=== PATIENT | female | born 1990 | race Caucasian/White ===

== ENCOUNTER 2016-10-09 14:13 | Inpatient (IN) | payer OTHER ==
[~2016-10-09] VITALS: Ht 165.1 cm; Wt 81.5 kg
[~2016-10-09 14:13] MED LIST: CLAR5TAB13 PO; ZOFR4TAB3 SL
[2016-10-09 14:15] VITALS: BP 117/63; PULSE 73; RESP 16; TEMP 97.8; O2SAT 100
[2016-10-09] MEDS ORDERED: SODIUM CHLOR 0.9% 1000 ML INJ 1,000 ML IV SCH (14:33)
[2016-10-09 14:39] VITALS: BP 124/66; PULSE 72; PULSE 78; RESP 18; O2SAT 100
[2016-10-09] MEDS ORDERED: LORazepam 2 MG/ML VIAL IV PUSH ONE (14:45)
[2016-10-09] MEDS ORDERED: KETOROLAC TROMETHAMINE 30 MG/ML (IVP) VIAL IVP ONE (14:45)
--- NOTE | 2016-10-09 15:04 | RADRPT ---
EXAM DATE/TIME: 10/09/2016 14:50 [facility] COMPARISON: No previous studies available for comparison. INDICATIONS : Chest pain. MEDICAL HISTORY : None. SURGICAL HISTORY : None. ENCOUNTER: Initial ACUITY: 1 day PAIN SCORE: 7/10 LOCATION: Bilateral chest FINDINGS: A single view of the chest demonstrates the lungs to be symmetrically aerated without evidence of mas s, infiltrate or effusion. The cardiomediastinal contours are unremarkable. Osseous structures are intact. CONCLUSION: No acute disease. Goyo Lawler MD FACR on October 09, 2016 at 15:02 Board Certified Radiologist. This report was verified electronically.
[2016-10-09 15:14] LABS: AUTOMATED NEUTROPHIL # 7.2 TH/MM3 (1.8-7.7); BASOPHIL # 0.1 TH/MM3 (0-0.2); BASOPHIL % 0.6 % (0.0-2.0); EOSINOPHIL % 0.3 % (0.0-4.0); HEMATOCRIT 39.9 % (35.0-46.0); HEMO FLAGS DIFF FINAL; LYMPH % 25.3 % (9.0-44.0); LYMPHOCYTE # 2.7 TH/MM3 (1.0-4.8); MEAN CORPUSCULAR HEMOGLOBIN 28.6 PG (27.0-34.0); MEAN CORPUSCULAR HGB CONC 35.3 % (32.0-36.0); MONO % 7.3 % (0.0-8.0); NEUT % 66.5 % (16.0-70.0); PLATELET COUNT 366 TH/MM3 (150-450); RED BLOOD COUNT 4.92 MIL/MM3 (4.00-5.30); RED CELL DISTRIBUTION WIDTH 12.8 % (11.6-17.2); WHITE BLOOD COUNT 10.8 TH/MM3 (4.0-11.0)
[2016-10-09 15:39] LABS: ALKALINE PHOSPHATASE 66 U/L (45-117); ALT (GPT) 26 U/L (10-53); ANION GAP 11 MEQ/L (5-15); AST (GOT) 43 U/L (15-37); BICARBONATE 23.1 MEQ/L (21.0-32.0); BLOOD UREA NITROGEN 11 MG/DL (7-18); CHLORIDE 104 MEQ/L (98-107); CREATINE KINASE 131 U/L (26-192); GLOMERULAR FILTRATION RATE 91 ML/MIN (>89); POTASSIUM 4.5 MEQ/L (3.5-5.1); SODIUM (NA) 138 MEQ/L (136-145); TOTAL BILIRUBIN ADULT 0.8 MG/DL (0.2-1.0)
[2016-10-09 15:52] LABS: CKMB LESS THAN 0.5 NG/ML (0.5-3.6)
[2016-10-09] MEDS ORDERED: NITROGLYCERIN 0.4 MG SL 25 TABS/BTL SL ONE (16:00)
[2016-10-09] MEDS ORDERED: ASPIRIN 325 MG TAB PO ONE (16:00)
--- NOTE | 2016-10-09 16:01 | PD ---
HPI Chief Complaint: Chest Pain Time Seen by Provider: 15:55 Travel History International Travel<30 days: No Contact w/Intl Traveler<30days: No Traveled to known affect area: No History of Present Illness HPI 26-year-old female that presents to the ED for evaluation of chest pain. Per patient she's had this on and off since yesterday. Per patient she's been feeling weak and tired. Per patient the pain for the past hour has become progressively more severe and this is what made her come here. Per patient she' s been a different hospitals properly worked up for this in the past and told her that she does have anxiety. She states that the pain doesn't does not radiate and she has some shortness of breath. Per patient she was following with an asthma doctor and she was told to try some albuterol inhaler as the toenail this was asthma but she states that she's never been diagnosed with it. She has no allergies to medication. She denies any abdominal pain. Per patient she just feels weak and tired. Pain does not radiate and stays in the left chest. She is not taking anything for this. She denies any drug abuse or recent travel. Denies taking control. Denies possibility of . States that the pain is 8 out of 10. States that she also has a slight headache. Has no allergies to medication. Has not seen a geek squad manager for this. States having a family history of heart disease but when her parents were 50 not at her age. PFSH Past Medical History Anxiety: Yes Heart Rhythm Problems: Yes (HEART MURMUR) Immunizations Current: Yes ?: Not Past Surgical History Eye Surgery: Yes (LEFT EYE MAC DEG PROCEDURE) Social History Alcohol Use: Yes (OCC) Tobacco Use: No (8 months ago) Substance Use: No Allergies-Medications (Allergen,Severity, Reaction): Coded Allergies: No Known Allergies (Unverified , 10/09/16) Reported Meds & Prescriptions Reported Meds & Active Scripts Active Zofran ODT (Ondansetron HCl) 4 Mg Tab 4 Mg SL Q6HR PRN FOR NAUSEA/VOMITING Reported Claritin Reditabs (Loratadine) 5 Mg Tab 5 Mg PO DAILY Review of Systems Except as stated in HPI: all other systems reviewed are Neg Physical Exam Narrative GENERAL: SKIN: Warm and dry. HEAD: Atraumatic. Normocephalic. EYES: Pupils equal and round. No scleral icterus. No injection or drainage. ENT: No nasal bleeding or discharge. Mucous membranes pink and moist. Tongue is midline. No uvula deviation. NECK: Trachea midline. No JVD. CARDIOVASCULAR: Regular rate and rhythm. No murmurs, S3, S4. Some of the chest pressure producible with touch in the left chest RESPIRATORY: No accessory muscle use. Clear to auscultation. Breath sounds equal bilaterally. GASTROINTESTINAL: Abdomen soft, non-tender, nondistended. Hepatic and splenic margins not palpable. MUSCULOSKELETAL: Extremities without clubbing, cyanosis, or edema. No obvious deformities. Full range of motion of the upper and lower extremities bilaterally. 2+ pulses bilaterally. NEUROLOGICAL: Awake and alert. No obvious cranial nerve deficits. Motor grossly within normal limits. Five out of 5 muscle strength in the arms and legs. Normal speech. PSYCHIATRIC: Appropriate mood and affect; insight and judgment normal. Data Data Last Documented VS Vital Signs Date Time Temp Pulse Resp B/P Pulse Ox O2 Delivery O2 Flow Rate FiO2 10/09/16 14:39 72 18 124/66 100 Room Air 10/09/16 14:15 97.8 Orders Electrocardiogram (10/09/16 14:33) Complete Blood Count With Diff (10/09/16 14:33) Comprehensive Metabolic Panel (10/09/16 14:33) Ckmb (Isoenzyme) Profile (10/09/16 14:33) Troponin I (10/09/16 14:33) Urinalysis - C+S If Indicated (10/09/16 14:33) Chest, Single Ap (10/09/16 14:33) Ct Brain W/O Iv Contrast(Rout) (10/09/16 14:33) Iv Access Insert/Monitor (10/09/16 14:33) Ecg Monitoring (10/09/16 14:33) Oximetry (10/09/16 14:33) Ed Urine Pregnancytest Poc (10/09/16 14:33) Drug Screen, Random Urine (10/09/16 14:33) Alcohol (Ethanol) (10/09/16 14:33) Sodium Chlor 0.9% 1000 Ml Inj (Ns 1000 M (10/09/16 14:33) Ketorolac Inj (Toradol Inj) (10/09/16 14:45) Lorazepam Inj (Ativan Inj) (10/09/16 14:45) D-Dimer (10/09/16 14:54) CKMB (10/09/16 15:00) CKMB% (10/09/16 15:00) Aspirin (Aspirin) (10/09/16 16:00) Nitroglycerin Sl (Nitrostat Sl) (10/09/16 16:00) Admit Order (Ed Use Only) (10/09/16 16:11) Labs Laboratory Tests Test 10/09/16 10/09/16 15:00 15:55 White Blood Count 10.8 TH/MM3 Red Blood Count 4.92 MIL/MM3 Hemoglobin 14.1 GM/DL Hematocrit 39.9 % Mean Corpuscular Volume 81.0 FL Mean Corpuscular Hemoglobin 28.6 PG Mean Corpuscular Hemoglobin 35.3 % Concent Red Cell Distribution Width 12.8 % Platelet Count 366 TH/MM3 Mean Platelet Volume 8.5 FL Neutrophils (%) (Auto) 66.5 % Lymphocytes (%) (Auto) 25.3 % Monocytes (%) (Auto) 7.3 % Eosinophils (%) (Auto) 0.3 % Basophils (%) (Auto) 0.6 % Neutrophils # (Auto) 7.2 TH/MM3 Lymphocytes # (Auto) 2.7 TH/MM3 Monocytes # (Auto) 0.8 TH/MM3 Eosinophils # (Auto) 0.0 TH/MM3 Basophils # (Auto) 0.1 TH/MM3 CBC Comment DIFF FINAL Differential Comment D-Dimer Quantitative (PE/DVT) 0.24 MG/L FEU Sodium Level 138 MEQ/L Potassium Level 4.5 MEQ/L Chloride Level 104 MEQ/L Carbon Dioxide Level 23.1 MEQ/L Anion Gap 11 MEQ/L Blood Urea Nitrogen 11 MG/DL Creatinine 0.77 MG/DL Estimat Glomerular Filtration 91 ML/MIN Rate Random Glucose 98 MG/DL Calcium Level 9.7 MG/DL Total Bilirubin 0.8 MG/DL Aspartate Amino Transf 43 U/L (AST/SGOT) Alanine Aminotransferase 26 U/L (ALT/SGPT) Alkaline Phosphatase 66 U/L Total Creatine Kinase 131 U/L Creatine Kinase MB LESS THAN 0.5 NG/ML Troponin I 0.19 NG/ML Total Protein 8.1 GM/DL Albumin 4.1 GM/DL Ethyl Alcohol Level LESS THAN 3 MG/DL Urine Color LIGHT-YELLOW Urine Turbidity CLEAR Urine pH 7.5 Urine Specific [place] 1.004 Urine Protein NEG mg/dL Urine Glucose (UA) NEG mg/dL Urine Ketones 10 mg/dL Urine Occult Blood NEG Urine Nitrite NEG Urine Bilirubin NEG Urine Urobilinogen LESS THAN 2.0 MG/DL Urine Leukocyte Esterase NEG Urine Squamous Epithelial <1 /hpf Cells Microscopic Urinalysis Comment CULT NOT INDICATED Urine Opiates Screen NEG Urine Barbiturates Screen NEG Urine Amphetamines Screen NEG Urine Benzodiazepines Screen NEG Urine Cocaine Screen NEG Urine Cannabinoids Screen NEG MDM Medical Decision Making Medical Screen Exam Complete: Yes Emergency Medical Condition: Yes Medical Record Reviewed: Yes Interpretation(s) EKG shows sinus rhythm with no sign of ST elevation or acute ischemia read by me and attending. CBC & BMP Diagram 10/09/16 15:00 troponin of 0.19 CKMB negative alcohol negative Last Impressions Chest X-Ray 10/09/16 1433 Signed Impressions: Service Date/Time: Sunday, October 09, 2016 14:50 - CONCLUSION: No acute disease. Goyo Lawler MD FACR Differential Diagnosis Chest pain versus atypical chest pain versus a reaction versus costochondritis versus pneumonia versus anxiety versus ACS versus PE Narrative Course 26-year-old female that presents to the ED for evaluation of chest pain. Patient was properly examined and was found to have signs and symptoms consistent appears to be chest pain. Her pain is somewhat purposeful with touch. I did press on her chest that she states that the pain is reproducible. She denies any drug abuse or history of heart disease. I will do basic labs and troponin as well as EKG to measures no sign of acute disease. Patient was started on aspirin as well as given Toradol for pain. I suspect some anxiety secondary to this as well so she was given Ativan for this. Labs and imaging came back positive for positive troponin. Patient was given nitroglycerin because of this. Case discussed with my attending Dr. Cooper who recommends admission. This was discussed with the patient and friend who agree with admission. MICHELLE Orellana agrees to admission. Procedures EKG Prior to Arrival: No Diagnosis Primary Impression: NSTEMI (non-ST elevated myocardial infarction) Additional Impression: Chest pain in adult Admitting Information Admitting Physician Requests: Admit Tre Ugarte October 09, 2016 16:01
[2016-10-09 16:06] LABS: BLOOD, URINE NEG (NEG); COMMENT (UR) CULT NOT INDICATED; CULTURE IF INDICATED CULT NOT INDICATED; GLUCOSE,URINE NEG (NEG); KETONE, URINE 10 mg/dL (NEG); NITRITE,URINE NEG (NEG); PH, URINE 7.5 (5.0-8.5); SQUAMOUS EPITHELIAL CELL URINE <1 /hpf (0-5); URINE COLOR LIGHT-YELLOW (YELLW/STRAW)
[2016-10-09 16:13] LABS: AMPHETAMINE, URINE NEG (NEG); BARBITURATES, URINE NEG (NEG); COCAINE, URINE NEG (NEG)
[2016-10-09 16:29] VITALS: BP 119/70; PULSE 93; RESP 18; O2SAT 100
--- NOTE | 2016-10-09 16:42 | RADRPT ---
EXAM DATE/TIME: 10/09/2016 16:18 [facility] COMPARISON: CT BRAIN W/O CONTRAST, October 10, 2015, 2:06. INDICATIONS : Occipital cephalgia, dizziness and general weakness today. RADIATION DOSE: 33.37 CTDIvol (mGy) MEDICAL HISTORY : None SURGICAL HISTORY : None. ENCOUNTER: Initial ACUITY: 1 day PAIN SCALE: 9/10 LOCATION: Bilateral occipital head TECHNIQUE: Multiple contiguous axial images were obtained of the head. Using automated exposure control and adj ustment of the mA and/or kV according to patient size, radiation dose was kept as low as reasonably a chievable to obtain optimal diagnostic quality images. FINDINGS: CEREBRUM: The ventricles are normal for age. No evidence of midline shift, mass lesion, hemorrhage or acute in farction. No extra-axial fluid collections are seen. POSTERIOR FOSSA: The cerebellum and brainstem are intact. The 4th ventricle is midline. The cerebellopontine angle i s unremarkable. EXTRACRANIAL: The visualized portion of the orbits is intact. SKULL: The calvaria is intact. No evidence of skull fracture. CONCLUSION: Negative for an acute process.. Goyo Lawler MD FACR on October 09, 2016 at 16:40 Board Certified Radiologist. This report was verified electronically.
[2016-10-09] MEDS ORDERED: ALPRAZolam 0.25 MG TAB PO PRN (17:15)
[2016-10-09] MEDS ORDERED: ACETAMINOPHEN 500 MG CPLT PO PRN (17:15)
[2016-10-09] MEDS ORDERED: SODIUM CHLORIDE 0.9% FLUSH 10 ML FLUSH IV FLUSH PRN (17:15)
--- NOTE | 2016-10-09 17:21 | HHI.HP ---
[facility] Service [facility] Primary Care Physician Avani Varela, DO Admission Diagnosis chest pain with elevated troponin, NSTEMI Diagnoses: (1) Chest pain in adult Chief Complaint: Chest pain Travel History International Travel<30 Days: No Contact w/Intl Traveler <30 Da: No Traveled to Known Affected Are: No History of Present Illness Written by Manoj Sanders, acting as scribe for Dr. Orellana on 10/09/16 at 17:04. 26-year-old female with no significant past oral history who presented for chest pain. Patient states that about 1 PM today she began having left sternal chest discomfort. She states the pain radiated to her left shoulder. She describes the pain as a constant heaviness with intermittent episodes of sharp discomfort lasting a few seconds at a time. She had associated dizziness and lightheadedness with the chest pain. She has some nausea when she woke up this morning, denies any vomiting. She denies any shortness of breath. She denies any relief of the chest discomfort with medications in the ED. She states that she's had episodes of chest discomfort since she was a teenager, and has been to the hospital numerous times with this, with no definite cause. She denies any recent illness, fever, chills, cough, diarrhea. She states that occasionally she gets palpitations. She does report associated numbness and tingling in her hands and feet. She states that she's had hospitalizations before for numbness and tingling. She states her thyroid is been checked and it is normal. She states that in the past the only test she can recall for heart were EKGs which have been normal. She denies any substance use, herbal supplements, energy drinks, etc. She denies any life stressors and states that things are going well with work and her relationship with her partner is going well. She states that she had a history of a "hole" in her heart as a child, and was told that it healed. Review of Systems Except as stated in HPI: all other systems reviewed are Neg Past Family Social History Past Medical History Headaches, takes ibuprofen as needed Seasonal allergies Past Surgical History Left eye surgery for macular degeneration Reported Medications Ibuprofen as needed Claritin and Flonase as needed Allergies: Coded Allergies: No Known Allergies (Unverified , 10/09/16) Family History Mother has COPD Father has diabetes Heart disease in the patient's mother side Social History Patient denies any tobacco or drug use Rare alcohol use Works as a photo and video geographic information scientist Physical Exam Vital Signs Vital Signs Date Time Temp Pulse Resp B/P Pulse Ox O2 Delivery O2 Flow Rate FiO2 10/09/16 16:29 93 18 119/70 100 10/09/16 14:39 72 18 124/66 100 Room Air 10/09/16 14:39 82 20 100 Room Air 10/09/16 14:39 78 18 124/66 100 Room Air 10/09/16 14:15 97.8 73 16 117/63 100 Physical Exam GENERAL: Well-developed well-nourished. In no acute distress. SKIN: Warm and dry. No lesions noted. HEENT: Normocephalic. Pupils equal and round. Mucous membranes pink and moist. CARDIOVASCULAR: Regular rate and rhythm. No murmur appreciated. Chest wall TTP. RESPIRATORY: No accessory muscle use. Clear to auscultation. Breath sounds equal bilaterally. GASTROINTESTINAL: Abdomen soft, non-tender, nondistended. Bowel sounds x4. MUSCULOSKELETAL: No obvious deformities. No clubbing or cyanosis. No edema. NEUROLOGICAL: Awake and alert. No focal neurological deficits. Moves upper and lower extremities spontaneously. Normal speech. PSYCHIATRIC: Slightly anxious mood and affect; insight and judgment normal. Laboratory Laboratory Tests Test 10/09/16 10/09/16 15:00 15:55 White Blood Count 10.8 Red Blood Count 4.92 Hemoglobin 14.1 Hematocrit 39.9 Mean Corpuscular Volume 81.0 Mean Corpuscular Hemoglobin 28.6 Mean Corpuscular Hemoglobin 35.3 Concent Red Cell Distribution Width 12.8 Platelet Count 366 Mean Platelet Volume 8.5 Neutrophils (%) (Auto) 66.5 Lymphocytes (%) (Auto) 25.3 Monocytes (%) (Auto) 7.3 Eosinophils (%) (Auto) 0.3 Basophils (%) (Auto) 0.6 Neutrophils # (Auto) 7.2 Lymphocytes # (Auto) 2.7 Monocytes # (Auto) 0.8 Eosinophils # (Auto) 0.0 Basophils # (Auto) 0.1 CBC Comment DIFF FINAL Differential Comment D-Dimer Quantitative (PE/DVT) 0.24 Sodium Level 138 Potassium Level 4.5 Chloride Level 104 Carbon Dioxide Level 23.1 Anion Gap 11 Blood Urea Nitrogen 11 Creatinine 0.77 Estimat Glomerular Filtration 91 Rate Random Glucose 98 Calcium Level 9.7 Total Bilirubin 0.8 Aspartate Amino Transf 43 (AST/SGOT) Alanine Aminotransferase 26 (ALT/SGPT) Alkaline Phosphatase 66 Total Creatine Kinase 131 Creatine Kinase MB LESS THAN 0.5 Troponin I 0.19 Total Protein 8.1 Albumin 4.1 Ethyl Alcohol Level LESS THAN 3 Urine Color LIGHT-YELLOW Urine Turbidity CLEAR Urine pH 7.5 Urine Specific [place] 1.004 Urine Protein NEG Urine Glucose (UA) NEG Urine Ketones 10 Urine Occult Blood NEG Urine Nitrite NEG Urine Bilirubin NEG Urine Urobilinogen LESS THAN 2.0 Urine Leukocyte Esterase NEG Urine Squamous Epithelial <1 Cells Microscopic Urinalysis Comment CULT NOT INDICATED Urine Opiates Screen NEG Urine Barbiturates Screen NEG Urine Amphetamines Screen NEG Urine Benzodiazepines Screen NEG Urine Cocaine Screen NEG Urine Cannabinoids Screen NEG Result Diagram: 10/09/16 1500 10/09/16 1500 Imaging Last Impressions Head CT 10/09/161432 Signed Impressions: Service Date/Time: Sunday, October 09, 2016 16:18 - CONCLUSION: Negative for an acute process.. Goyo Lawler MD FACR Chest X-Ray 10/09/161432 Signed Impressions: Service Date/Time: Sunday, October 09, 2016 14:50 - CONCLUSION: No acute disease. Goyo Lawler MD FACR Assessment and Plan Problem List: (1) Chest pain in adult ICD Code: R07.9 Status: Acute Assessment and Plan 26-year-old female with no significant past oral history who presented for chest pain Atypical chest pain with elevated troponin: Unclear etiology, although pain is reproducible to palpation. Reviewed: EKG with NSR and no ischemic changes. Troponin 0.19. D-dimer within normal limits. UDS unremarkable. Chest x-ray clear. -Trend troponins -Check echocardiogram -Monitor on telemetry. -Check TSH and magnesium -PPI DVT prophylaxis: SCDs This note was transcribed by hilda Sanders. I, Dr. Arjun Orellana personally performed the history, physical exam, and medical decision making; and confirmed the accuracy of the information in the transcribed note. Authenticated by Dr. Arjun Orellana on 10/09/16 at 17:01. Code Status Ful code Discussed Condition With Patient, ED Manoj Beard October 09, 2016 17:21 Arjun Orellana MD October 09, 2016 17:22
[2016-10-09 17:42] VITALS: BP 108/70
[2016-10-09 20:01] VITALS: BP 116/68; PULSE 81; RESP 18; TEMP 98; O2SAT 98
[2016-10-09 22:08] LABS: FREE T4 1.19 NG/DL (0.76-1.46)
[2016-10-09] MEDS: SODIUM CHLORIDE 0.9% FLUSH 10 ML FLUSH IV FLUSH SCH (22:51)
[2016-10-10] VITALS (13 sets, daily range): BP systolic 98–117; BP diastolic 58–82; PULSE 67–98; RESP 17–20; TEMP 97.7–98.6; O2SAT 96–100
[2016-10-10] MEDS ORDERED: ENOXAPARIN SODIUM 40 MG/0.4 ML SYRINGE SQ SCH (05:45)
[2016-10-10] MEDS ORDERED: NITROGLYCERIN 0.3 MG SL 100 TABS/BTL SL PRN (07:15)
[2016-10-10] MEDS ORDERED: HEPARIN-D5W INJ 250 ML IV SCH (07:30)
[2016-10-10] MEDS ORDERED: SODIUM CHLOR 0.9% 1000 ML INJ 1,000 ML IV SCH ×2 (07:30→16:13)
[2016-10-10 08:09] LABS: HEMATOCRIT 35.3 % (35.0-46.0); MEAN CELL VOLUME 81.6 FL (80.0-100.0); MEAN CORPUSCULAR HEMOGLOBIN 28.8 PG (27.0-34.0); MEAN CORPUSCULAR HGB CONC 35.2 % (32.0-36.0); PLATELET COUNT 339 TH/MM3 (150-450); RED BLOOD COUNT 4.32 MIL/MM3 (4.00-5.30); RED CELL DISTRIBUTION WIDTH 13.1 % (11.6-17.2); REVIEW FLAG FINAL
[2016-10-10 08:22] LABS: APTT (PATIENT) 32.5 SEC (24.3-30.1); INTERNATIONAL NORMALIZED RATIO 1.1 RATIO; PROTHROMBIN TIME - PATIENT 11.7 SEC (9.8-11.6)
[2016-10-10] MEDS ORDERED: METOPROLOL TARTRATE 25 MG TAB PO ONE (08:30)
--- NOTE | 2016-10-10 08:58 | MB ---
cc: MIKE GUZMAN DATE OF CONSULTATION: 10/10/2016 REASON FOR CONSULTATION: Chest pain with elevated cardiac enzymes. Date of : 1990 Hospital records have been reviewed. HISTORY OF PRESENT ILLNESS: The patient is a 26-year-old woman who I am seeing for chest pain with elevated cardiac enzymes. The patient states she had a small hole in her heart when she was young which closed. She had seen a credit verifier in [facility], but it was felt she needed no further follow up. The patient for many years notes a few times per month palpitations which start up suddenly lasting up to minutes. These are irregularities in her heartbeat with lightheadedness and some mild pressure. This has not changed. She notes chronic mild to moderate dyspnea on exertion which is stable even climbing one flight of stairs and gets occasional atypical chest pressure. The patient yesterday was driving and developed a sudden sharp discomfort in her left parasternal area which radiated towards her left shoulder. This was persistent, nonpleuritic, positional, and became a pressure. This lasted many hours and she sought attention here. This went away but she does have mild pressure this morning. Again, it is not pleuritic or positional. EKG shows sinus rhythm with minimal Q-waves inferiorly but probably normal. PAST MEDICAL HISTORY: Past medical history is really unremarkable otherwise with no medical history except for the above, except for occasional headaches and left eye surgery for macular degeneration. MEDICATIONS: She is on no regular medications. ALLERGIES None. FAMILY HISTORY Family history may be remarkable for heart disease in a grandfather. SOCIAL HISTORY: She is single and winn, in with her partner. She absolutely denies any chance she is . She rarely drinks and does not use drugs or smoke. REVIEW OF SYSTEMS: Review of systems otherwise unremarkable except for the above. PHYSICAL EXAMINATION: On exam she has very mild pressure and afebrile. Vital signs stable. There are no xanthelasma and oral pharyngeal mucosa normal. Chest: Clear. JVD normal. Cardiac: S1-S2 no murmurs or gallops. Abdomen: Benign. Extremities: Show no cyanosis, clubbing or edema. Pulses 1 to 2+ throughout without bruits. She is not ambulated. Chest x-ray: Shows no active disease. CT head: No active disease. LABORATORY WORK: CBC normal. PT/PTT normal with normal D-dimer. Urinalysis negative. Toxicology screen negative. Potassium 4.5, creatinine 0.77, glucose 98. CPK is normal but with elevated troponins at 0.19 / 0.31 / 0.28 / 0.32. Free T4 is normal but her TSH level is low at 0.026. PROBLEMS 1. Chest discomfort with elevated troponin - the situation is certainly unclear in this young woman. This could be a myocarditis although we certainly need to rule out aortic dissection. I have spoken to Dr. Puente, my invasive partner. The question was whether this patient should go to the catheterization lab to rule out a coronary dissection but he felt with normal EKG and risk factors, that we would be better off pursuing a CT angiogram. 2. History of septal defect which closed. 3. Palpitations. 4. Possibly hypothyroidism. RECOMMENDATIONS 1. Stat echocardiogram. 2. Hold heparin until we know CT angiogram is negative for aortic dissection and then started. 3. Start the patient on beta blockers. 4. Elective CT angiogram of the coronary arteries in 1-2 days. 5. May need CIRO. All questions have been answered. MD ОЛЬГА Siddiqui/ARMADNO /8:35 AM /8:47 AM
[2016-10-10] MEDS ORDERED: ASPIRIN 325 MG TAB PO SCH (09:00)
--- NOTE | 2016-10-10 09:25 | EC ---
Study Study Date:10/10/2016 STUDY CONCLUSIONS SUMMARY LEFT VENTRICLE: The cavity size was normal. Wall thickness was normal. Systolic function was normal. The estimated ejection fraction was in the range of 55% to 60%. Wall motion was normal; there were no regional wall motion abnormalities. If LV function is below 40, please consider prescribing an ACEI or ARB or document rationale for non-use. PROCEDURE DATA STUDY STATUS: Elective. Procedure: Transthoracic echocardiography. Image quality was fair. Scanning was performed from the parasternal, apical, and subcostal acoustic windows. Study completion: The patient tolerated the procedure well. Transthoracic echocardiography. M-mode, complete 2D, complete spectral Doppler, and color Doppler. Patient status: Inpatient. CARDIAC ANATOMY LEFT VENTRICLE: The cavity size was normal. Wall thickness was normal. Systolic function was normal. The estimated ejection fraction was in the range of 55% to 60%. Wall motion was normal; there were no regional wall motion abnormalities. AORTIC VALVE: Poorly visualized. Normal thickness leaflets. Doppler: Transvalvular velocity was within the normal range. There was no stenosis. No regurgitation. AORTA: Aortic root: The aortic root was normal in size. MITRAL VALVE: Structurally normal valve. Doppler: Transvalvular velocity was within the normal range. There was no evidence for stenosis. No regurgitation. Peak gradient: 3mm Hg (D). LEFT ATRIUM: The atrium was normal in size. RIGHT VENTRICLE: The cavity size was normal. Wall thickness was normal. PULMONIC VALVE: Poorly visualized. Doppler: Transvalvular velocity was within the normal range. There was no evidence for stenosis. Trace regurgitation. TRICUSPID VALVE: Poorly visualized. Structurally normal valve. Doppler: Transvalvular velocity was within the normal range. Trace regurgitation. PULMONARY ARTERY: The main pulmonary artery was normal-sized. RIGHT ATRIUM: The atrium was normal in size. PERICARDIUM: There was no pericardial effusion. SYSTEMIC VEINS: Inferior vena cava: The vessel was normal in size. BASIC MEASUREMENTS ADULT Normal Left ventricle LV internal dimension, ED, chordal level, *42.7 mm 43-52 PLAX LV internal dimension, ES, chordal level, 30.1 mm 23-38 PLAX Fractional shortening, chordal level, PLAX 30 % >29 LV posterior wall thickness, ED 6.82 mm IVS/LVPW ratio, ED 1.22 <1.3 Ventricular septum Septal thickness, ED 8.33 mm Aortic valve Leaflet separation 18 mm 15-26 Left atrium Anterior-posterior dimension 28 mm Right ventricle RV internal dimension, ED, PLAX *18.8 mm 19-38 BASIC MEASUREMENTS ADULT Normal Aortic valve Leaflet separation 18 mm 15-26 Aorta Root diameter, ED 26 mm 20-37 DOPPLER MEASUREMENTS ADULT Normal Mitral valve Peak E-wave velocity 84.4 cm/s Peak A-wave velocity 71.6 cm/s Peak gradient, D 3 mm Hg Peak E/A ratio 1.2 Tricuspid valve Regurgitant peak velocity 206 cm/s Peak RV-RA gradient, S 17 mm Hg Maximal regurgitant velocity 206 cm/s LEGEND: Mean values are shown as u=mean value. Asterisk (*) mendez values outside specified normal range. Prepared and signed by Kenneth Montanez [id number]
[2016-10-10] MEDS ORDERED: IOHEXOL 350 MG/ML 10 ML VIAL (for RAD DIAG) IV ONE (09:48)
[2016-10-10] MEDS ORDERED: PNEUMOCOCCAL POLYVALENT INJ 25 MCG/0.5 ML SYR IM ONE (10:00)
--- NOTE | 2016-10-10 10:02 | RADRPT ---
EXAM DATE/TIME: 10/10/2016 09:19 [place] COMPARISON: No previous studies available for comparison. INDICATIONS : Mid chest pain since last night. IV CONTRAST: 97 cc Omnipaque 350 (iohexol) IV RADIATION DOSE: 16.18 CTDIvol (mGy) MEDICAL HISTORY : Cardiovascular disease. congentinal SURGICAL HISTORY : None. ENCOUNTER: Initial ACUITY: 1 day PAIN SCALE: 6/10 LOCATION: middle chest TECHNIQUE: Volumetric scanning was performed using a multi-row detector CT scanner. The data was post processed with a variety of visualization algorithms including full volume maximum intensity projection, multi -planar sliding thin slab reformation, curved planar reformation, and surface rendering techniques. Using automated exposure control and adjustment of the mA and/or kV according to patient size, radiat ion dose was kept as low as reasonably achievable to obtain optimal diagnostic quality images. FINDINGS: LUNGS: Lungs demonstrate no acute finding. MEDIASTINUM: No lymphadenopathy or concerning abnormality is seen. Residual thymic tissue is present in the anteri or mediastinum. ABDOMEN: Solid organs have a normal appearance. There is no free fluid. Small and large bowel is within normal limits. Appendix is normal. PELVIS: Urinary bladder is within normal limits. Uterus and ovaries are normal. THORACIC AORTA: The thoracic aortic root is normal with normal branching of the great vessels. There is no evidence of aneurysm or dissection. ABDOMINAL AORTA: The aorta is normal in caliber without aneurysm or dissection. The renal arteries are patent bilater ally. The proximal celiac and superior mesenteric arteries are patent and normal in diameter. PELVIC VESSELS: The internal iliac and external iliac vessels are patent without aneurysm or stenosis. CONCLUSION: 1. No aneurysm or dissection is present. 2. Additionally, the surrounding structures demonstrate no acute finding. Ruperto Duff MD on October 10, 2016 at 9:58 Board Certified Radiologist. This report was verified electronically.
[2016-10-10] MEDS: PANTOPRAZOLE SOD 40 MG DELAYED RELEASE TAB PO SCH (10:59)
[2016-10-10] MEDS: SODIUM CHLOR 0.45% 1000 ML INJ 1,000 ML IV SCH ×2 (10:59→20:00)
[2016-10-10] MEDS: SODIUM CHLORIDE 0.9% FLUSH 10 ML FLUSH IV FLUSH SCH ×2 (10:59→20:52)
[2016-10-10 11:42] LABS: FREE T4 1.27 NG/DL (0.76-1.46); HDL CHOLESTEROL 28.5 MG/DL (40.0-60.0)
--- NOTE | 2016-10-10 11:55 | MB ---
cc: MIKE GUZMAN DATE OF CONSULTATION: 10/10/2016 REASON FOR CONSULTATION: ADDENDUM: The patient's CT angiogram was negative for intrathoracic pathology or aortic dissection and the echocardiogram normal. She continues with chest discomfort with elevated troponin. I have gone over the possible etiologies with her. Given the fact that the situation is unclear both in terms of diagnosis, prognosis and therapy, I have recommended catheterization with possible intervention to the patient to be done with my partner, Dr. Puente. The risks / benefits / alternatives were explained and all questions answered. The patient understands it is unusual that we will do a catheterization in such a young person but the etiology is unclear at this point in time. She clearly wants to move forward with it understanding the risks, benefits and alternatives. Again all questions were answered. MD ОЛЬГА Siddiqui/ARMANDO /11:50 AM /11:53 AM
--- NOTE | 2016-10-10 13:18 | HHI.PR ---
Subjective Remarks Follow-up for chest pain. The patient continues to complain of intermittent episodes of chest discomfort and heaviness. She states it worse it is 8/10 in severity. She states it is currently 45/10. She denies any fevers or chills. She does continue to have some discomfort to touch in certain places of her chest wall. Troponins increased overnight and cardiology was consulted. A stat CT angiogram was negative for acute dissection. A stat echocardiogram showed normal systolic function. Cardiology has recommended for cardiac catheterization today. Patient verbalizes understanding the risks and wants to proceed. Objective Vitals Vital Signs Date Time Temp Pulse Resp B/P Pulse Ox O2 Delivery O2 Flow Rate FiO2 10/10/16 12:05 98.6 67 20 108/66 100 10/10/16 11:17 78 10/10/16 08:36 97.7 86 18 117/60 100 10/10/16 00:08 98.5 80 18 102/64 99 10/09/16 20:01 98.0 81 18 116/68 98 10/09/16 17:42 80 16 108/70 98 10/09/16 16:29 93 18 119/70 100 10/09/16 14:39 72 18 124/66 100 Room Air 10/09/16 14:39 82 20 100 Room Air 10/09/16 14:39 78 18 124/66 100 Room Air 10/09/16 14:15 97.8 73 16 117/63 100 I/O 10/09/16 10/09/16 10/09/16 10/10/16 10/10/16 10/10/16 07:00 15:00 23:00 07:00 15:00 23:00 Intake Total 1350 ml 300 ml Balance 1350 ml 300 ml Intake Oral 350 ml 300 ml IV Total 1000 ml # Voids 1 Result Diagram: 10/10/16 0740 10/09/16 1500 Imaging Last Impressions Aorta CTA 10/10/16 0000 Signed Impressions: Service Date/Time: Monday, October 10, 2016 09:19 - CONCLUSION: 1. No aneurysm or dissection is present. 2. Additionally, the surrounding structures demonstrate no acute finding. Ruperto Duff MD Head CT 10/09/16 1433 Signed Impressions: Service Date/Time: Sunday, October 09, 2016 16:18 - CONCLUSION: Negative for an acute process.. Goyo Lawler MD FACR Chest X-Ray 10/09/16 1433 Signed Impressions: Service Date/Time: Sunday, October 09, 2016 14:50 - CONCLUSION: No acute disease. Goyo Lawler MD FACR Objective Remarks GENERAL: Well-developed well-nourished. In no acute distress. SKIN: Warm and dry. No lesions noted. HEENT: Normocephalic. Pupils equal and round. Mucous membranes pink and moist. CARDIOVASCULAR: Regular rate and rhythm. No murmur appreciated. Chest wall TTP. RESPIRATORY: No accessory muscle use. Clear to auscultation. Breath sounds equal bilaterally. GASTROINTESTINAL: Abdomen soft, non-tender, nondistended. Bowel sounds x4. MUSCULOSKELETAL: No obvious deformities. No clubbing or cyanosis. No edema. NEUROLOGICAL: Awake and alert. No focal neurological deficits. Moves upper and lower extremities spontaneously. Normal speech. PSYCHIATRIC: Appropriate mood and affect; insight and judgment normal. A/P Problem List: (1) Chest pain in adult ICD Code: R07.9 Status: Acute Assessment and Plan 26-year-old female with no significant past oral history who presented for chest pain Atypical chest pain with elevated troponin: Possible NSTEMI vs viral myositis vs costochondritis vs other Reviewed: EKG with NSR and no ischemic changes. Troponins 0.19, 0.31, 0.28, 0.3 to. D-dimer within normal limits. UDS unremarkable. Chest x-ray clear. CTA negative for dissection or aneurysm. Echocardiogram with normal systolic function. Thyroid function as well as. ESR 22. -Cardiology consulted, recommends catheterization today. -Heparin GTT -IVF watch her renal function with contrast administration -Monitor on telemetry. -PPI Sick euthyroid?: Depressed TSH with normal T3 and T4. Unclear etiology, viral? Follow-up thyroid function testing in 4-6 weeks. DVT prophylaxis: SCDs. Heparin Discussed with Dr. Yun Discharge Planning Follow-up cardiology recommendations. Manoj Sanders October 10, 2016 13:18
[2016-10-10] MEDS: METOPROLOL TARTRATE 25 MG TAB PO SCH ×2 (14:00→20:53)
--- NOTE | 2016-10-10 14:38 | EKG ---
Date Performed: 10/09/2016 Time Performed: 20:55:18 PTAGE: 26 years EKG: Sinus rhythm POSSIBLE INFERIOR MYOCARDIAL INFARCTION BORDERLINE ECG PREVIOUS TRACING : 10/09/2016 14.51 Compared to previous tracing, no significant change. DOCTOR: David Heller Interpretating Date/Time 10/10/2016 14:37:05
--- NOTE | 2016-10-10 14:38 | EKG ---
Date Performed: 10/09/2016 Time Performed: 14:51:25 PTAGE: 26 years EKG: POSSIBLE INFERIOR WALL MYOCARDIAL INFARCTION OF UNDETERMINED AGE WITH NO ST ELEVATION IN TH BETTIE LEADS NO PREVIOUS TRACING FOR COMPARISON ABNORMAL ECG NO PREVIOUS TRACING DOCTOR: David Heller Interpretating Date/Time 10/10/2016 14:36:27
--- NOTE | 2016-10-10 14:40 | EKG ---
Date Performed: 10/10/2016 Time Performed: 07:11:37 PTAGE: 26 years EKG: SMALL INFERIOR Q WAVE OF UNDETERMINED SIGNIFICANCE IN LEAD III. OTHERWISE WITHIN NORMAL MONT[place]AYOR ITS Since previous tracing, no significant change noted NORMAL ECG NO PREVIOUS TRACING DOCTOR: David Heller Interpretating Date/Time 10/10/2016 14:39:27
--- NOTE | 2016-10-10 14:40 | EKG ---
Date Performed: 10/10/2016 Time Performed: 03:08:06 PTAGE: 26 years EKG: SMALL INFERIOR Q WAVES OF UNDETERMINED SIGNIFICANCE OTHERWISE WITHIN NORMAL LIMITS Compared to previous tracing, Q waves are smaller in lead aVF. No ST-T changes are seen in the inferior leads to suggest acute injury. NORMAL ECG PREVIOUS TRACING : 10/10/2016 03.07 DOCTOR: David Heller Interpretating Date/Time 10/10/2016 14:38:32
[2016-10-10] MEDS ORDERED: HEPARIN-NS/PF INJ 500 ML ONE (15:12)
[2016-10-10] MEDS ORDERED: MIDAZOLAM HCL 2 MG/2 ML VIAL ONE ×2 (15:30→15:37)
--- NOTE | 2016-10-10 16:04 | CATHPROC ---
[employer] HIS Report Study Information Study Number Admission Scheduled Start Study Start 1021-17 10/09/2016 10/10/2016 Oct 10 2016 2:44PM Study Type [place] Service Left Heart Cath Cardiac Catheterization Referring Institution Admit Source Facility Department 1 Emergency department [facility] - Product Safety Associate Physician and Clinical Staff Initial James Prasad Palaeontologistregan Isaac RN, Jimi PalaeontologistClementine Perez RN/BA Recorder Ale Carbajal,RT(R) Viola DonovanRT(R) (BS) Procedures Performed Procedure Location (Site) Vessel Name Angiogram LV AO Arch (A1) Aorta Angiogram LV LV Ventricle Coronary Angiograms LCA Left Coronary Coronary Angiograms RCA Right Coronary L Heart Cath Wire insertion Fem Art (right) Femoral Art Equipment Time Wash Driller Helper Description Size Mfg Part Number Used/Scraped TRANSDUCER, TRUWAVE 15:31 STEVENS CRUMP * [id number] Used W/[employer] [id number] 15:58 CARDIVA MEDICAL VASCADE, FR6 CLOSURE SYSTEM FR 6\7 Used *[id number] 15:59 [employer]ARD[employer] MEDICAL VASCADE, FR6 CLOSURE SYSTEM FR 6\7 Used *[id number] *[id number] *[id number] [id number] *[id number] [id number] *[id number] 15:31 MEDLINE INDUST[employer]ES PACK, CCL CUSTOM * Used *[id number] 15:31 MEDLINE PACER PEN, SKIN DUAL W/ RULER * [id number] Used [id number] 15:31 [employer]l MEDICAL SHEATH, FR6.5 PRELUDE 11CM FR 6.5 038ACT Used *[id number] 15:31 [employer] MEDICAL WIRE, 3MMJ .035 180CM 180CM Used *[id number] 15:31 NAMIC MANIFOLD, 4 PORT * Used *[id number] 15:58 [employer]COMED OMNIPAQUE, 350 MG, 100ML 100ML [id number] Used 15:31 [employer]COMED OMNIPAQUE, 350 MG, 150ML 150ML [id number] Used [id number] 15:31 LUIS MEDICAL BLANKET,WARM AIR CCL * Used *[id number] History: Current Medications Medication Dosage/Unit Route Frequency Last Date/Time Taken LOPRESSOR ASA History: Allergies Allergy Reaction No Known Allergies History: Risk Factors Family History of Hypertension Dyslipidemia Previous [place] Previous Heart Failure Premature CAD No No No No No Prior Valve Prior PCI Prior CABG Surgery No No No Cerebrovascular Peripheral Artery Chronic Lung On Dialysis Diabetes Disease Disease Disease No No No No No History: Symptoms/Diagnosis Selection Items Chest pain History: Stress Tests Stress or Imaging Studies Performed No History: Other Current Smoker No Labs Hgb (g/dl) Hct (%) RBC (MIL/MM3) WBC (l/cumm) Platelets (thousands) 12.00-18.00 37.00-55.00 4.80-6.20 4.80-10.80 140.00-450.00 12.8 39.9 4.9 8 366 Glucose (mg/dl) BUN (mg/dl) Creatinine (mg/dl) BUN:Creatinine (1:x) 60.00-110.00 8.00-20.00 0.10-9.00 10.00-20.00 98 11 0.7 15.7 Na (meq/l) K (meq/l) Cl (meq/l) CO2 (mmol/L) Ca (mg/dl) 138.00-146.00 3.80-5.10 101.00-111.00 23.00-30.00 9.00-10.50 138 4.5 104 23.1 9.7 INR (PTT:PT) 0.50-2.00 1.1 Troponin I (ng/ml) CPK (u/l) CPK-MB (ng/ML) 0.40-2.30 37.00-289.00 0.00-7.00 0.3 49 0.5 Medication Medication Total Dose (Bolus/Oral) Medication Total Dosage/Unit 1% XYLOCAINE 20 mL NTG (IC) 250 mcg OXYGEN 2 l/min VERSED 4 mg Medications (Bolus/Oral) Medication Time Given Dosage/Unit Administered By Reason 1% XYLOCAINE 10/10/2016 3:34:25 PM 20 mL James Puente 20 mL 1% XYLOCAINE given in lab by James Puente in Right Groin via Subcutaneous. VERSED 10/10/2016 3:35:02 PM 2 mg Jimi Isaac RN 2 mg VERSED given in lab by Jimi Isaac RN via Peripheral IV. VERSED 10/10/2016 3:39:16 PM 2 mg Jimi Isaac RN 2 mg VERSED given in lab by Jimi Isaac RN via Peripheral IV. OXYGEN 10/10/2016 3:45:00 PM 2 l/min Jimi Isaac RN 2 l/min OXYGEN given in lab by Jimi Isaac RN via Nasal. NTG (IC) 10/10/2016 3:46:16 PM 200 mcg Viola Handley 200 mcg NTG (IC) given in lab by Viola Handley RT(R) (BS) via Intra-coronary. NTG (IC) 10/10/2016 3:50:31 PM 50 mcg Viola Handley 50 mcg NTG (IC) given in lab by Viola Handley RT(R) (BS) via Intra-coronary. Medication (Drip) Medication Time Given Dosage/Unit Concentration/Unit Diluent (ml) Solution IV Solutions 10/10/2016 3:01:32 PM 0 mL (IV) 500 NaCl .45 Patient arrived on IV Solutions in Right Antecubital via Peripheral IV. Pump/Drip Flow = 20 ml/hr usi ng NaCl .45. Ordered by James Puente. Initial Case Assessment Cardiovascular HR Rhythm Chest Pain 72 reg 0 Edema Present Skin color Skin None Normal Warm Circulatory - Right Pulses Dorsalis Pedis Femoral 2 2 Scale (0,1,2,3,4,d) Circulatory - Left Pulses Dorsalis Pedis Femoral 2 2 Scale (0,1,2,3,4,d) Circulatory - Lower Extremities Color Lower Right Color Lower Left Normal Normal Neurological State Oriented to time-place- Alert Moves all extremities person Respiration - General Respiration Rate SpO2 (%) O2 (lpm) (B/min) 20 100 0 Final Case Assessment Cardiovascular HR Rhythm NIBP Chest Pain 88 REG 119/53 0 Edema Present Skin color Skin None Normal Warm Circulatory - Right Pulses Dorsalis Pedis Femoral 2 2 Scale (0,1,2,3,4,d) Circulatory - Left Pulses Dorsalis Pedis Femoral 2 2 Scale (0,1,2,3,4,d) Circulatory - Lower Extremities Color Lower Right Color Lower Left Normal Normal Neurological State Oriented to time-place- Alert Moves all extremities person Respiration - General Respiration Rate SpO2 (%) (B/min) 10 100 Chronological Log Time Study Chronological Log 15:01:20 Patient arrived via Bed. 15:01:21 Patient Name, D.O.B, / Armband Verified By R.N. 15:: Consent signed by the physician and the patient and verified by the Product Safety Associate staff. 15:: Pre-op and post- op instructions given; patient acknowledges understanding of instructions. Verbal Stimulation=~VERBAL~ Physical Stimulation=~PHYSICAL~ Airway=~AIRWAY~ Respiration=~RESPIR ATION~ 15::24 TOTAL=~TOTAL~. (0=absent, 1=limited, 2=present) 15:: Presedation assessment performed by Product Safety Associate RN. :: Patient has been NPO for More than 6Hrs. 15:: Skin Breakdown- 15:: Charo Prominences Protected 15::32 A # 20 IV was noted in the Antecubital (right). Grade = 0 Patient arrived on IV Solutions in Right Antecubital via Peripheral IV. Pump/Drip Flow = 20 ml/ hr using NaCl .45. 15::32 Ordered by James Puente. 15::33 History and physical on the chart or being dictated. Assessment: Initial Case, HR=72 BPM, Rhythm=reg, Chest Pain=0, Edema=None, Color=Normal, Skin = Warm Right Pulses: Sundar Ped=2, Femoral=2 Left Pulses: Sundar Ped=2, Femoral=2 15:01:35 Lower Right Extremities: Color=Normal Lower Left Extremities: Color=Normal Neurological: State=Alert, Ox3, BARRETT Respiration: Resp=20 B/min, PhV2=922 %, O2=0 lpm 15:13:00 Vitals capture stopped. 15:18:49 HEPARIN DISCONTINUED AT 0830 ACCORDING TO PRE OP CHECKLIST 15:19:55 HCG NEGATIVE Vitals capture started with the following parameters, Patient=Adult, Interval=5 min, Initial Pr ghjqaa=611 mmHg, 15::25 Deflation Rate=5 mmHg 15:27:08 HR=67 bpm, NIBP=97/66 mmhg, IqU9=145.0 %, Resp=20 B/min, Pain=0, Anthony=10, Nicole=2 15:27:24 Reference ECG taken 15::41 Pressure channel 1 zero failed. 15::57 Pressure channel 1 zeroed. 15::40 paged 15:29:53 Bilateral groins prepped with 2% chlorhexidine, and with a 3 min. waiting time. 15:31:55 HR=67 bpm, WFNW=115/66 mmhg, FyQ8=827.0 %, Resp=20 B/min, Pain=0, Anthony=10, Nicole=2 15:32:29 MD arrived. Time Out. Correct patient, correct procedure,correct physician, ,power injector loaded with con trast with surgical 15:33:58 team present. Time Out Concurred by MD, individual staff and GAS APPLIANCE REPAIRER in procedure 15:34:17 Case Start 15:34:18 Verbal Stimulation=2 Physical Stimulation=2 Airway=2 Respiration=2 TOTAL=8. (0=absent, 1=li mited, 2=present) 15:34:25 20 mL 1% XYLOCAINE given in lab by James Puente in Right Groin via Subcutaneous. 15:35:02 2 mg VERSED given in lab by Jimi Isaac RN via Peripheral IV. 15:36:09 A wire was inserted via Fem Art (right). 15:37:00 HR=72 bpm, NCFE=654/66 mmhg, HlH2=506.0 %, Resp=17 B/min, Pain=0, Anthony=10, Nicole=2 15:38:30 Access site was Right Femoral Artery. 15:39:10 A SHEATH, FR6.5 PRELUDE 11CM FR 6.5 was advanced into the Fem Art (right) using the Percuta neous technique. 15:39:16 2 mg VERSED given in lab by Jimi Isaac RN via Peripheral IV. A JL 4.0 INFINITI CATHETER FR 6 was advanced over a wire. OMNIPAQUE, 350 MG, 150ML 150ML was us ed for 15:39:26 injections. 15:40:22 The LCA was injected and visualized at various angles. OMNIPAQUE, 350 MG, 150ML 150ML used . 15:41:30 Pressure channel 1 zeroed. 15:42:03 HR=63 bpm, PXZG=409/65 mmhg, SjX7=225.0 %, Resp=29 B/min, Pain=0, Anthony=10, Nicole=2 Recorded Pressure: Ao, HR=63, Condition=Condition 1 15:42:05 (Aorta) Ao 107/58/79 15:42:59 Catheter was removed A 3DRC INFINITI CATHETER FR 6 was advanced over a wire. OMNIPAQUE, 350 MG, 150ML 150ML was used for 15:43:26 injections. 15:45:00 2 l/min OXYGEN given in lab by Jimi Isaac RN via Nasal. 15:45:19 The RCA was injected and visualized at various angles. OMNIPAQUE, 350 MG, 150ML 150ML used . 15:46:16 200 mcg NTG (IC) given in lab by Viola Handley, RT(R) (BS) via Intra-coronary. 15:47:00 HR=63 bpm, EACM=621/72 mmhg, AhD9=621.0 %, Resp=8 B/min, Pain=0, Anthony=10, Nicole=2 15:48:12 Catheter was removed A 3DRC INFINITI CATHETER FR 6 was advanced over a wire. OMNIPAQUE, 350 MG, 150ML 150ML was used for 15:48:14 injections. 2ND 15:50:31 50 mcg NTG (IC) given in lab by Viola Handley, RT(R) (BS) via Intra-coronary. 15:50:42 The RCA was injected and visualized at various angles. OMNIPAQUE, 350 MG, 150ML 150ML used . 15:51:48 Catheter was removed 15:52:04 HR=86 bpm, QSQD=643/66 mmhg, SkO3=617.0 %, Resp=15 B/min, Pain=0, Anthony=10, Nicole=2 A PIGTAIL STR INFINITI CATHETER FR 6 was advanced over a wire. OMNIPAQUE, 350 MG, 150ML 150ML w as used for 15:52:21 injections. Recorded Pressure: LV, HR=84, Condition=Condition 1 15:52:49 (Left Ventricle) LV 100/0/10 15:53:02 The LV was injected at 12 cc/sec for a total of 42. OMNIPAQUE, 350 MG, 150ML 150ML used. Recorded Pressure: LV, Ao, HR=83, Condition=Condition 1 15:54:57 (Left Ventricle) LV 103/-30/12, (Aorta) Ao 97/60/80 15:55:17 The AO Arch (A1) was injected at 20 cc/sec for a total of 40. OMNIPAQUE, 350 MG, 150ML 150M L used. 15:56:23 Catheter was removed 15:56:41 An injection in the Fem Art (right) was made through the SHEATH, FR6.5 PRELUDE 11CM FR 6.5. Assessment: Final Case, HR=88 BPM, Rhythm=REG, CSFO=886/53 mmhg, Chest Pain=0, Edema=None, [place] r=Normal, Skin = Warm Right Pulses: Sundar Ped=2, Femoral=2 Left Pulses: Sundar Ped=2, Femoral=2 15:56:54 Lower Right Extremities: Color=Normal Lower Left Extremities: Color=Normal Neurological: State=Alert, Ox3, BARRETT Respiration: Resp=10 B/min, ToO9=847 % 15:57:07 HR=77 bpm, TDXK=307/53 mmhg, OqI3=957.0 %, Resp=11 B/min, Pain=0, Anthony=10, Nicole=2 15:57:37 Catheter(s) removed without difficulty 15:57:40 VASCADE, FR6 CLOSURE SYSTEM FR 6\7 placement in the Fem Art (right) 15:57:54 Sterile dressing applied to site 15:57:55 No case complications noted. 15:57:56 Cine recording checked. 15:58:02 Contrast Scanned 15:58:21 A Left Heart Cath was performed. 15:58:24 Clinical correlaton risk stratification. 16:02:04 HR=65 bpm, QDVB=871/70 mmhg, FpK6=652.0 %, Resp=17 B/min, Pain=0, Anthony=10, Nicole=2 End Study - Contrast Media Used In Study Contrast Total Opened (mL) Total Used (mL) Total Wasted (mL) Omnipaque 110 110 0 End Study - Maximum Contrast Load Max Contrast Load (mL) 535.7 End Study - Radiation Exposure Fluoro Time (minutes) 4.4 End Study - Sheaths Sheaths Pulled By Sheath Hold Time (min) James Puente 5 End Study - Patient Disposition Complications Transferred To Interventional Outcome No Regular Bed No attempt made
--- NOTE | 2016-10-10 16:06 | MB ---
cc: SUNDAR SOUTH M.D. Interventional cardiac consultation DATE OF CONSULTATION 10/10/2016 REASON FOR CONSULTATION Cardiac catheterization. HISTORY OF PRESENT ILLNESS The patient is a 26-year-old white female with basically no major past medical history who was admitted to the hospital with complaints of chest pain. On the day prior to admission she began to experience a relatively sharp left-sided chest discomfort with some radiation to her left shoulder. The chest pain was not pleuritic and there was no definite associated shortness of breath, nausea or diaphoresis. Cardiac enzymes here in hospital have been found to be slightly abnormal. CT angiogram shows no evidence for aortic dissection. Positional changes do not appear to affect the chest pain. She also denies palpitations, pedal edema, syncope, near-syncope. She reports a history of a "hole in her heart" which may have spontaneously close as a child. PAST MEDICAL HISTORY None. MEDICATIONS Cardiac medications at home, none. ALLERGIES NO KNOWN DRUG ALLERGIES. FAMILY HISTORY There is no significant family history of early myocardial infarction. SOCIAL HISTORY The patient denies alcohol or tobacco abuse. REVIEW OF SYSTEMS As in the history of present illness otherwise negative or noncontributory. PHYSICAL EXAMINATION VITAL SIGNS: Her blood pressure 98/58 with a pulse of 81, respiratory rate 20. GENERAL: She is a well-developed, well-nourished white female in no acute distress. HEENT/NECK: On HEENT examination jugular venous pressure is normal. Carotid pulses are 2+ bilaterally and without bruits. LUNGS: Examination of the chest reveals clear lung pearson. CARDIOVASCULAR: On cardiac examination she has a regular rhythm and rate without S3-S4 or murmur. ABDOMEN: She has a soft, nontender abdomen. Bowel sounds are present. There is no definite hepatosplenomegaly. EXTREMITIES: Examination of the extremities reveals no clubbing, cyanosis or edema. LABORATORY DATA Includes normal CBC. Troponin 0.32. Total cholesterol 168, LDL 110, HDL 28, triglycerides 148. Potassium 4.5, BUN 11, creatinine 0.77. CK 131. EKG shows normal sinus rhythm, normal EKG. IMAGING Chest x-ray shows no acute disease. IMPRESSION Ongoing chest pains, abnormal troponin levels in this 26-year-old white female with no major past medical history. I have been asked to see the patient for possible cardiac catheterization. CT angiogram apparently shows no evidence for aortic dissection. Echocardiogram shows no definite evidence that her symptoms and abnormal labs are due to an acute myocarditis or pericarditis. Overall I would agree with the need for cardiac catheterization for most definitive evaluation of her coronary anatomy. The nature of this procedure and potential risks have been outlined to the patient. She wishes to proceed. RECOMMENDATIONS Cardiac catheterization today. MD ARACELIS Amos/KK /3:00 PM /3:48 PM [id number]
[2016-10-10] MEDS ORDERED: MISC INFORMATION XX ONE (16:15)
[2016-10-10] MEDS ORDERED: SODIUM CHLOR 0.9% 250 ML INJ 250 ML IV PRN (16:15)
[2016-10-10] MEDS ORDERED: ATROPINE SULFATE 1 MG/ML VIAL IV PRN (16:15)
--- NOTE | 2016-10-10 16:42 | MA ---
cc: SUNDAR SOUTH DATE 10/10/16 PROCEDURE Left heart catheterization, selective coronary angiography, left ventriculography, aortic root injection. PROCEDURE NOTE The patient was brought to the cardiac catheterization laboratory in a fasting state after having signed informed consent. The right groin was prepped and draped as per policy and anesthetized with 1% lidocaine. Arterial access was obtained via the right femoral artery and a 6-Comoran sheath placed. Coronary arteriography was performed using 6-Comoran Alfred left 4.0 and right Progressive catheters. Left ventriculography and aortic root injection was done using a standard 6-Comoran pigtail. There were no apparent immediate complications. Her arteriotomy site was closed with Vascade with the achievement of good hemostasis. HEMODYNAMIC DATA Left ventricle 103 with an end-diastolic pressure of 10. Aorta 97/60 with a mean of 80. There was no significant transvalvular aortic gradient on pullback of the pigtail catheter. CORONARY ARTERIOGRAPHY The left main is normal. The left anterior descending gives rise to a medium sized branching diagonal. No disease is seen in the LAD system. There was a small to medium-size ramus intermedius which is free of disease. The left circumflex is a medium sized codominant vessel giving rise to a medium-sized obtuse marginal from its midportion. No disease is seen in the left circumflex system. The right coronary artery is a small caliber vessel giving rise to a very small posterior descending artery. No definite disease is seen in the right coronary artery. The patient was also given intracoronary nitroglycerin with no change in the diameter of the right coronary artery. LEFT VENTRICULOGRAPHY AND AORTIC ROOT INJECTION: Contrast injection of the left ventricle reveals no segmental wall motion abnormalities. Estimated ejection fraction is 50-55%. There is also no evidence for aortic dissection. The aortic arch anatomy appears normal. CONCLUSION 1. Angiographically normal coronary arteries. 2. Low normal left ventricular systolic function with estimated ejection fraction of 50-55%. 3. No evidence for aortic dissection. Sundar South MD [facility] /4:07 PM /4:36 PM [facility]
[2016-10-10] MEDS ORDERED: SUCRALFATE 1 GM TAB PO ONE (19:15)
[2016-10-11] VITALS (10 sets, daily range): BP systolic 95–111; BP diastolic 51–68; PULSE 76–99; RESP 18; TEMP 97.7–98.4; O2SAT 97–98
[2016-10-11] MEDS: SODIUM CHLOR 0.45% 1000 ML INJ 1,000 ML IV SCH (06:00)
[2016-10-11] MEDS: METOPROLOL TARTRATE 25 MG TAB PO SCH (06:19)
--- NOTE | 2016-10-11 08:06 | PD.CARD.PN ---
Subjective Subjective Remarks Chart reviewed and catheterization films reviewed. The patient has mild substernal pressure which is improved but has a positional component. She has no other cardiac complaints, bleeding. Telemetry shows sinus rhythm. Objective Medications Reviewed Vital Signs / I&O Vital Signs Date Time Temp Pulse Resp B/P Pulse Ox O2 Delivery O2 Flow Rate FiO2 10/11/16 06:00 88 10/11/16 05:00 87 10/11/16 04:00 Room Air 10/11/16 04:00 98.4 91 18 111/53 97 10/11/16 04:00 91 10/11/16 03:00 87 10/11/16 02:00 86 10/11/16 01:00 81 10/11/16 00:00 98.1 79 18 102/51 97 10/11/16 00:00 76 10/11/16 00:00 Room Air 10/10/16 23:00 81 10/10/16 22:00 86 10/10/16 21:00 88 10/10/16 20:00 Room Air 10/10/16 20:00 84 10/10/16 20:00 98.6 84 20 104/64 99 10/10/16 18:29 98 10/10/16 17:00 74 10/10/16 16:15 98.0 76 17 107/82 96 10/10/16 16:00 72 10/10/16 14:09 98.6 81 20 98/58 100 10/10/16 12:05 98.6 67 20 108/66 100 10/10/16 11:17 78 10/10/16 08:36 97.7 86 18 117/60 100 I/O 10/10/16 10/10/16 10/10/16 10/11/16 10/11/16 10/11/16 07:00 15:00 23:00 07:00 15:00 23:00 Intake Total 300 ml 1048 ml Output Total 400 ml 1100 ml Balance 300 ml -400 ml -52 ml Intake Oral 300 ml 48 ml IV Total 1000 ml Output Urine Total 400 ml 1100 ml # Bowel Movements 0 Physical Exam GENERAL: Well-nourished, well-developed patient in no apparent distress. SKIN: Warm and dry. NECK: JVD normal - less than or equal to 5 cm H20. CARDIOVASCULAR: Regular rate and rhythm without murmurs, gallops, or rubs. RESPIRATORY: Normal breath sounds - equal bilaterally. No accessory muscle use. No wheezes, rales or rubs. PERIPHERY: No cyanosis, or edema. Right groin without hematoma or bruit. Laboratory Laboratory Tests Test 10/10/16 10/10/16 10:55 14:16 Total Creatine Kinase 51 U/L Triglycerides Level 148 MG/DL Cholesterol Level 168 MG/DL LDL Cholesterol 110 MG/DL HDL Cholesterol 28.5 MG/DL Cholesterol/HDL Ratio 5.89 RATIO Free Thyroxine 1.27 NG/DL Total Triiodothyronine 122 NG/DL Thyroid Stimulating Hormone 0.028 uIU/ML 3rd Gen Activated Partial 32.0 SEC Thromboplast Time Imaging Last 48 hours Impressions Aorta CTA 10/10/16 0000 Signed Impressions: Service Date/Time: Monday, October 10, 2016 09:19 - CONCLUSION: 1. No aneurysm or dissection is present. 2. Additionally, the surrounding structures demonstrate no acute finding. Ruperto Duff MD Head CT 10/09/16 1433 Signed Impressions: Service Date/Time: Sunday, October 09, 2016 16:18 - CONCLUSION: Negative for an acute process.. Goyo Lawler MD FACR Chest X-Ray 10/09/16 1433 Signed Impressions: Service Date/Time: Sunday, October 09, 2016 14:50 - CONCLUSION: No acute disease. Goyo Lawler MD FACR Assessment and Plan Assessment and Plan Problems: Chest discomfort with mildly elevated troponinmost likely represents mild myopericarditis. Low TSH Low HDL Recommendations: Discontinue aspirin and beta blockers. We'll start her on ibuprofen for presumed mild pericarditis. No heavy exertion. Groin care discussed. I will leave further evaluation of the thyroid to the primary service. I will be discharged to them. I have given the patient my card and would like to see her in 2 weeks in my office. She will call tomorrow for an appointment. All questions were answered. Kenneth Montanez MD October 11, 2016 08:06
[2016-10-11 08:30] LABS: BASOPHIL % 0.3 % (0.0-2.0); EOSINOPHIL % 0.3 % (0.0-4.0); HEMATOCRIT 35.3 % (35.0-46.0); HEMO FLAGS DIFF FINAL; LYMPH % 18.9 % (9.0-44.0); LYMPHOCYTE # 2.1 TH/MM3 (1.0-4.8); MEAN CELL VOLUME 81.8 FL (80.0-100.0); MEAN CORPUSCULAR HEMOGLOBIN 28.4 PG (27.0-34.0); MEAN CORPUSCULAR HGB CONC 34.7 % (32.0-36.0); MONO % 6.9 % (0.0-8.0); NEUT % 73.6 % (16.0-70.0); PLATELET COUNT 333 TH/MM3 (150-450); RED BLOOD COUNT 4.32 MIL/MM3 (4.00-5.30); RED CELL DISTRIBUTION WIDTH 13.1 % (11.6-17.2); WHITE BLOOD COUNT 10.9 TH/MM3 (4.0-11.0)
[2016-10-11] MEDS ORDERED: IBUPROFEN 400 MG TAB PO SCH (09:00)
[2016-10-11] MEDS: SODIUM CHLORIDE 0.9% FLUSH 10 ML FLUSH IV FLUSH SCH (09:00)
[2016-10-11 09:10] LABS: POTASSIUM 3.7 MEQ/L (3.5-5.1)
[2016-10-11] MEDS: PANTOPRAZOLE SOD 40 MG DELAYED RELEASE TAB PO SCH (09:12)
--- NOTE | 2016-10-11 10:03 | HHI.PR ---
Subjective Remarks Follow-up for chest pain. SO at bedside. The patient reports the chest pain continues to improve. She denies any shortness of breath. She denies any fevers or chills. She states her thyroid function was tested last summer and was normal at that time. She does have a PCP. Objective Vitals Vital Signs Date Time Temp Pulse Resp B/P Pulse Ox O2 Delivery O2 Flow Rate FiO2 10/11/16 08:14 97.7 99 18 95/65 98 10/11/16 08:14 98 Room Air 10/11/16 07:41 96 10/11/16 06:00 88 10/11/16 05:00 87 10/11/16 04:00 Room Air 10/11/16 04:00 98.4 91 18 111/53 97 10/11/16 04:00 91 10/11/16 03:00 87 10/11/16 02:00 86 10/11/16 01:00 81 10/11/16 00:00 98.1 79 18 102/51 97 10/11/16 00:00 76 10/11/16 00:00 Room Air 10/10/16 23:00 81 10/10/16 22:00 86 10/10/16 21:00 88 10/10/16 20:00 Room Air 10/10/16 20:00 84 10/10/16 20:00 98.6 84 20 104/64 99 10/10/16 18:29 98 10/10/16 17:00 74 10/10/16 16:15 98.0 76 17 107/82 96 10/10/16 16:00 72 10/10/16 14:09 98.6 81 20 98/58 100 10/10/16 12:05 98.6 67 20 108/66 100 10/10/16 11:17 78 I/O 10/10/16 10/10/16 10/10/16 10/11/16 10/11/16 10/11/16 07:00 15:00 23:00 07:00 15:00 23:00 Intake Total 300 ml 1048 ml Output Total 400 ml 1100 ml Balance 300 ml -400 ml -52 ml Intake Oral 300 ml 48 ml IV Total 1000 ml Output Urine Total 400 ml 1100 ml # Bowel Movements 0 Result Diagram: 10/11/1672310/11/16723 Imaging Last Impressions Aorta CTA 10/10/16 0000 Signed Impressions: Service Date/Time: Monday, October 10, 2016 09:19 - CONCLUSION: 1. No aneurysm or dissection is present. 2. Additionally, the surrounding structures demonstrate no acute finding. Ruperto Duff MD Head CT 10/09/16 1433 Signed Impressions: Service Date/Time: Sunday, October 09, 2016 16:18 - CONCLUSION: Negative for an acute process.. Goyo Lawler MD FACR Chest X-Ray 10/09/16 1433 Signed Impressions: Service Date/Time: Sunday, October 09, 2016 14:50 - CONCLUSION: No acute disease. Goyo Lawler MD FACR Objective Remarks GENERAL: Well-developed well-nourished. In no acute distress. SKIN: Warm and dry. No lesions noted. HEENT: Normocephalic. Pupils equal and round. Mucous membranes pink and moist. CARDIOVASCULAR: Regular rate and rhythm. No murmur appreciated. Chest wall TTP. RESPIRATORY: No accessory muscle use. Clear to auscultation. Breath sounds equal bilaterally. GASTROINTESTINAL: Abdomen soft, non-tender, nondistended. Bowel sounds x4. MUSCULOSKELETAL: No obvious deformities. No clubbing or cyanosis. No edema. NEUROLOGICAL: Awake and alert. No focal neurological deficits. Moves upper and lower extremities spontaneously. Normal speech. PSYCHIATRIC: Appropriate mood and affect; insight and judgment normal. A/P Problem List: (1) Chest pain in adult ICD Code: R07.9 Status: Acute Assessment and Plan 26-year-old female with no significant past oral history who presented for chest pain Atypical chest pain with elevated troponin: Evaluated by cardiology with essentially negative workup to date. Suspect mild viral myopericarditis. Reviewed: EKG with NSR and no ischemic changes. Troponins 0.19, 0.31, 0.28, 0.32. D-dimer within normal limits. UDS unremarkable. Chest x-ray clear. CTA negative for dissection or aneurysm. Echocardiogram with normal systolic function. Thyroid function as below. ESR slightly elevated at 22. Angiographically normal coronary arteries. Renal function stable after contrast administration. Afebrile with no leukocytosis. -Cardiology consulted, recommended treatment for myopericarditis with ibuprofen and outpatient follow-up Sick euthyroid?: Depressed TSH with normal T3 and T4. Reports normal thyroid function last summer. This could definitely be due to viral infection as above. Follow-up with PCP for repeat thyroid function testing in 4-6 weeks. DVT prophylaxis: SCDs. Heparin Discussed with Dr. Yun Discharge Planning Discharge patient to home Condition on discharge: Improved Regular Diet as tolerated Regular activity Rx written: Ibuprofen Follow-up with primary care physician and cardiology Manoj Sanders October 11, 2016 10:03
[2016-10-11] MEDS ORDERED: PROT40TA PO (10:05)
[2016-10-11] MEDS ORDERED: IBUP400T20 PO (10:05)
== END 2016-10-11 12:53 | disposition home or self-care (01) | DRG 287 ==
LOC: NEPE 14:13 → INTOOBSV 16:12 → NEDA 16:12 → NEPHCDU 18:24 → OBSVTOIN 10-10 07:22 → HCIS 10-10 15:42 → HCIN 10-10 16:10
PROVIDERS: ADMIT Internal Medicine; ATTEND Internal Medicine
PROC: B2151ZZ Fluoroscopy of Left Heart using Low Osmolar Contrast (ICD-10-PCS; principal; 2016-10-10)
PROC: B2111ZZ Fluoroscopy of Multiple Coronary Arteries using Low Osmolar Contrast (ICD-10-PCS; 2016-10-10)
PROC: 4A023N7 Measurement of Cardiac Sampling and Pressure, Left Heart, Percutaneous Approach (ICD-10-PCS; 2016-10-10)
DX: I31.9 Disease of pericardium, unspecified (principal)
CPT/HCPCS: 70450; 71010; 71275; 74174; 80048; 80053; 80061; 80307; 81001; 82550; 82552; 83735; 84100; 84439; 84443; 84480; 84484; 84703; 85025; 85027; 85379; 85610; 85652; 85730; 93005; 93306; 93458; 93567; 96365; C1760; C1769; C1893; G0269; G0378; J1644; J1650; J1885; J2060; J2250; J7030; Q9967

== ENCOUNTER 2017-05-11 23:26 | Emergency (ER) | payer SELFPAY ==
[~2017-05-11] VITALS: Ht 165.1 cm; Wt 85.0 kg
[~2017-05-11 23:26] MED LIST changes: +IBUP1TAB5 PO; +PROT40TA PO; -ZOFR4TAB3 SL
[2017-05-11 23:28] VITALS: BP 123/66; PULSE 84; RESP 16; TEMP 98.9; O2SAT 98
[2017-05-11] MEDS ORDERED: METH5TAB4 PO (23:44)
--- NOTE | 2017-05-12 00:44 | PD ---
HPI Chief Complaint: Edema Time Seen by Provider: 23:41 Travel History International Travel<30 days: No Contact w/Intl Traveler<30days: No Traveled to known affect area: No History of Present Illness HPI Patient is a 27-year-old female who has a recent diagnosis of Graves' disease. She was actually in [place] ER in September where she had elevated troponin 0.32 troponin. Then she had a cath that pt reports was normal . then she had diagnosis of hyperthyroid disease . Her trop thet felt was due to to a viral inflammation myocarditis without a definitive diagnosis. SHe has not seen an sap technical developer nor insurance application investigator yet. She has a new lump on her thyroid anterior to right side 3 cm round and it is causing her pain and tightness in her throat. She has taken no medication to alleviate Sx .. Nothing alleviates or worsens symptoms PFSH Past Medical History Asthma: Yes (childhood) Anxiety: Yes Depression: No Heart Rhythm Problems: Yes (HEART MURMUR) Cancer: No Cardiovascular Problems: Yes Endocrine: No Genitourinary: No Immune Disorder: No Musculoskeletal: No Neurologic: No Psychiatric: Yes Reproductive: No Respiratory: Yes Immunizations Current: Yes Thyroid Disease: Yes (graves disease) Tetanus Vaccination: Unknown Influenza Vaccination: No ?: Not LMP: 05/04/2017 Past Surgical History Eye Surgery: Yes (LEFT EYE MAC DEG PROCEDURE) Other Surgery: Yes (left eye) Social History Alcohol Use: Yes (OCC) Tobacco Use: No Substance Use: No Allergies-Medications (Allergen,Severity, Reaction): Coded Allergies: No Known Allergies (Unverified Adverse Reaction, Unknown, 05/11/17) Reported Meds & Prescriptions Reported Meds & Active Scripts Active Reported Methimazole 5 Mg Tab 5 Mg PO BID Review of Systems Except as stated in HPI: all other systems reviewed are Neg Physical Exam Narrative GENERAL: appears anxious holding her throat thyroid area SKIN: Warm and dry. HEAD: Atraumatic. Normocephalic. EYES: Pupils equal and round. No scleral icterus. No injection or drainage. ENT: No nasal bleeding or discharge. Mucous membranes pink and moist. NECK: Trachea midline. No JVD. Lump felt at offcenter to right 3 cm lump firm CARDIOVASCULAR: Regular rate and rhythm. RESPIRATORY: No accessory muscle use. Clear to auscultation. Breath sounds equal bilaterally. GASTROINTESTINAL: Abdomen soft, non-tender, nondistended. Hepatic and splenic margins not palpable. MUSCULOSKELETAL: Extremities without clubbing, cyanosis, or edema. No obvious deformities. NEUROLOGICAL: Awake and alert. No obvious cranial nerve deficits. Motor grossly within normal limits. Five out of 5 muscle strength in the arms and legs. Normal speech. PSYCHIATRIC: Appropriate mood and affect; insight and judgment normal. Data Data Last Documented VS Orders Orders Complete Blood Count With Diff (05/12/17 00:22) Comprehensive Metabolic Panel (05/12/17:22) Creatine Kinase (Cpk) (05/12/17:22) Troponin I (05/12/17:22) C-Reactive Protein (Crp) (05/12/17:22) Lipase (05/12/17:22) D-Dimer (05/12/17:) Magnesium (Mg) (05/12/17:22) Thyroid Stimulating Hormone (05/12/17:22) Free T3 (05/12/17:22) Thyroxine (T4) (05/12/17:22) Sodium Chlorid 0.9% 500 Ml Inj (Ns 500 M (05/12/17 01:00) Group A Rapid Strep Screen (05/12/17 01:14) Influenzae A/B Antigen (05/12/17 01:14) Strep Culture (Group A) (05/12/17 01:20) Mandatory Outpatient Referral (05/12/17 02:00) Ed Discharge Order (05/12/17 02:23) Labs Laboratory Tests Test 05/12/17 00:25 White Blood Count 11.6 TH/MM3 Red Blood Count 4.47 MIL/MM3 Hemoglobin 12.8 GM/DL Hematocrit 36.3 % Mean Corpuscular Volume 81.3 FL Mean Corpuscular Hemoglobin 28.6 PG Mean Corpuscular Hemoglobin Concent 35.2 % Red Cell Distribution Width 12.9 % Platelet Count 401 TH/MM3 Mean Platelet Volume 8.0 FL Neutrophils (%) (Auto) 67.5 % Lymphocytes (%) (Auto) 25.4 % Monocytes (%) (Auto) 5.9 % Eosinophils (%) (Auto) 0.7 % Basophils (%) (Auto) 0.5 % Neutrophils # (Auto) 7.9 TH/MM3 Lymphocytes # (Auto) 3.0 TH/MM3 Monocytes # (Auto) 0.7 TH/MM3 Eosinophils # (Auto) 0.1 TH/MM3 Basophils # (Auto) 0.1 TH/MM3 CBC Comment DIFF FINAL Differential Comment D-Dimer Quantitative (PE/DVT) 0.21 MG/L FEU Blood Urea Nitrogen 16 MG/DL Creatinine 0.77 MG/DL Random Glucose 114 MG/DL Total Protein 7.4 GM/DL Albumin 3.9 GM/DL Calcium Level 9.3 MG/DL Magnesium Level 1.8 MG/DL Alkaline Phosphatase 76 U/L Aspartate Amino Transf (AST/SGOT) 21 U/L Alanine Aminotransferase (ALT/SGPT) 31 U/L Total Bilirubin 0.3 MG/DL Sodium Level 140 MEQ/L Potassium Level 3.2 MEQ/L Chloride Level 105 MEQ/L Carbon Dioxide Level 28.5 MEQ/L Anion Gap 7 MEQ/L Estimat Glomerular Filtration Rate 91 ML/MIN Total Creatine Kinase 86 U/L Troponin I 0.04 NG/ML C-Reactive Protein 0.43 MG/DL Lipase 103 U/L Thyroxine (T4) 5.0 MCG/DL Free Triiodothyronine (T3) pg/dL 2.98 PG/ML Thyroid Stimulating Hormone 3rd Gen 35.100 uIU/ML MDM Medical Decision Making Medical Screen Exam Complete: Yes Emergency Medical Condition: Yes Differential Diagnosis pt has lump on thyroid could be cyst or cartiledge or mass , nodule of parachymal origin or other Narrative Course pt Labs to look at TSH and T3 and T4 and will admit for definitive treatment and US in AM . I spoke with the hospitalist who felt this could be followed as an outpatient and we called case management who helped me put a mandatory outpatient referral in the computer I did not see an endocrine possibility so I put a general surgeon who would manage her thyroid if it is indicated as well as order the ultrasound for the definitive study to decide what this lump on her neck would be, Pt agrees with the plan Diagnosis Primary Impression: Thyroid lump Patient Instructions: General Instructions, Hyperthyroidism (ED) Disposition: 01 DISCHARGE HOME Condition: Alvaro Swanson MD May 12, 2017 00:44
[2017-05-12] MEDS ORDERED: SODIUM CHLORID 0.9% 500 ML INJ 500 ML IV ONE (01:00)
[2017-05-12 01:04] LABS: AUTOMATED NEUTROPHIL # 7.9 TH/MM3 (1.8-7.7); BASOPHIL # 0.1 TH/MM3 (0-0.2); BASOPHIL % 0.5 % (0.0-2.0); EOSINOPHIL # 0.1 TH/MM3 (0-0.4); EOSINOPHIL % 0.7 % (0.0-4.0); HEMATOCRIT 36.3 % (35.0-46.0); HEMOGLOBIN 12.8 GM/DL (11.6-15.3); LYMPH % 25.4 % (9.0-44.0); MEAN CELL VOLUME 81.3 FL (80.0-100.0); MEAN CORPUSCULAR HEMOGLOBIN 28.6 PG (27.0-34.0); MEAN CORPUSCULAR HGB CONC 35.2 % (32.0-36.0); MONO % 5.9 % (0.0-8.0); MONOCYTE # 0.7 TH/MM3 (0-0.9); NEUT % 67.5 % (16.0-70.0); PLATELET COUNT 401 TH/MM3 (150-450); RED BLOOD COUNT 4.47 MIL/MM3 (4.00-5.30); RED CELL DISTRIBUTION WIDTH 12.9 % (11.6-17.2); WHITE BLOOD COUNT 11.6 TH/MM3 (4.0-11.0)
[2017-05-12 01:26] LABS: ALBUMIN 3.9 GM/DL (3.4-5.0); AST (GOT) 21 U/L (15-37); BICARBONATE 28.5 MEQ/L (21.0-32.0); BLOOD UREA NITROGEN 16 MG/DL (7-18); CALCIUM 9.3 MG/DL (8.5-10.1); CHLORIDE 105 MEQ/L (98-107); CREATININE 0.77 MG/DL (0.50-1.00); GLOMERULAR FILTRATION RATE 91 ML/MIN (>89); GLUCOSE,RANDOM 114 MG/DL (74-106); LIPASE 103 U/L (73-393); MAGNESIUM 1.8 MG/DL (1.5-2.5); SODIUM (NA) 140 MEQ/L (136-145)
[2017-05-12 01:36] LABS: ALKALINE PHOSPHATASE 76 U/L (45-117); ALT (GPT) 31 U/L (10-53); C-REACTIVE PROTEIN 0.43 MG/DL (0.00-0.30); FREE T3 2.98 PG/ML (2.18-3.98); TOTAL BILIRUBIN ADULT 0.3 MG/DL (0.2-1.0); TOTAL PROTEIN 7.4 GM/DL (6.4-8.2); TROPONIN I 0.04 NG/ML (0.02-0.05)
== END 2017-05-12 02:36 | disposition home or self-care (01) ==
LOC: NEPE 23:26
DX: R22.1 Localized swelling, mass and lump, neck (principal); E05.00 Thyrotoxicosis with diffuse goiter without thyrotoxic crisis or storm
CPT/HCPCS: 80053; 82550; 83690; 83735; 84436; 84443; 84481; 84484; 85025; 85379; 86140; 87081; 87804; 87880; 96360; 99284; J7040

== ENCOUNTER → 2017-06-09 | Outpatient (CLI) | payer OTHER ==
[~2017-06-09] MED LIST changes: -CLAR5TAB13 PO; +GADODIAMIDE PF 287 MG/ML 20 ML VIAL (for RAD MRI) IVCONTRAST ONE; -IBUP1TAB5 PO; +METH5TAB4 PO; -PROT40TA PO
--- NOTE | 2017-06-09 18:43 | RADRPT ---
EXAM DATE/TIME: 06/09/2017 17:44 [facility] COMPARISON: No previous studies available for comparison. INDICATIONS : Mass. CONTRAST: 17 cc Omniscan (gadodiamide) IV MEDICAL HISTORY : Graves' disease. macular degeneration. heart murmur. eye hemorrhage. SURGICAL HISTORY : Cardiac cath. Left eye. ENCOUNTER: Initial ACUITY: 3 months PAIN SCORE: 0/10 LOCATION: neck TECHNIQUE: Multisequence, multiplanar MRI examination was performed. FINDINGS: NASOPHARYNX: The nasopharyngeal airway has a normal configuration. No mucosal thickening or mass is seen. OROPHARYX: The intrinsic muscles of the tongue are symmetric. The tonsillar pillars are intact. The prevertebr al soft tissues are not thickened. LARYNX: The supraglottic, glottic, and infraglottic structures are intact. PARAPHARYNGEAL: The parapharyngeal space is intact. SALIVARY GLANDS: The parotid and submandibular glands are intact. LYMPH NODES: No enlarged or necrotic appearing nodes. THYROID: Mildly enlarged and mildly lobulated thyroid. There is an 11 mm nodule in the isthmus with minimal en hancement. BONES: Homogeneous signal in the marrow of the visualized osseous structures. POST CONTRAST: No abnormal areas of enhancement seen. CONCLUSION: Nonspecific 11 mm nodule of the isthmus of the thyroid gland. Nonemergent thyroid ultrasound is recom mended for further characterization and possible surveillance. The study is otherwise normal. Ruperto Valdez MD on June 09, 2017 at 18:36 Board Certified Radiologist. This report was verified electronically.
== END ==
LOC: HRAD 12:40
DX: R07.0 Pain in throat (principal); R22.1 Localized swelling, mass and lump, neck; R22.0 Localized swelling, mass and lump, head
CPT/HCPCS: 70543; A9579